=== PATIENT | male | born 1970 | race Caucasian/White ===

== ENCOUNTER 2017-01-26 11:13 | Day surgery (SDC) | payer OTHER ==
[~2017-01-26] VITALS: Ht 182.9 cm; Wt 98.1 kg
[2017-01-26 12:32] VITALS: Ht 182.9 cm; Wt 98.1 kg
[2017-01-26] MEDS ORDERED: LIDOCAINE 2% (SDV) 5 ML INJ ONE (13:56)
[2017-01-26] MEDS ORDERED: PROPOFOL 40 ML ONE (13:56)
[2017-01-26 14:03] VITALS: BP 146/88; PULSE 69; RESP 16
[2017-01-26 14:51] VITALS: BP 148/98; RESP 20
--- NOTE | 2017-01-26 15:14 | GILP ---
DATE OF PROCEDURE: 01/26/2017 NAME OF PROCEDURES: 1. Esophagogastroduodenoscopy and biopsy. 2. Colonoscopy and biopsy. SURGEON: Radha Santana MD PREOPERATIVE DIAGNOSES: 1. Abdominal pain. 2. Change in the bowel habit. 3. Family history of colon cancer. POSTOPERATIVE DIAGNOSES: 1. Gastritis with erosions. 2. Biopsy was positive for Helicobacter pylori test. 3. Colonoscopy all the way to the cecum. 4. Small cecal polyp was removed using the biopsy forceps. 5. Diverticulosis of the colon. 6. Internal hemorrhoids. INDICATION FOR THE PROCEDURE: Mr. Fady Recinos is a 46-year-old male patient who had upper and lowe r abdominal pain associated with change in the bowel habit. The patient also has a family history o f colon cancer. The patient was scheduled for endoscopy and colonoscopy for further evaluation. The procedures and possible complications were well explained to the patient, he understood and cons ented to the procedure. DESCRIPTION OF PROCEDURE: Under the influence of anesthesia, the gastroscope was carefully introduc ed into the esophagus and under direct vision, it was advanced to the stomach and through the pyloru s into the duodenal bulb and descending duodenum. FINDINGS: ESOPHAGUS: The mucosa was normal. STOMACH: The patient had gastritis with erosions. Gastric mucosal biopsies were positive for H. py nicolasa test. DUODENUM: Normal. The colonoscope was carefully introduced in the rectum and under direct vision, it was advanced all the way to the cecum. FINDINGS: The patient had a small cecal polyp and it was removed using the biopsy forceps. He was noted to have diverticulosis of the colon and internal hemorrhoids. He tolerated the procedures very well and there was no complication from the procedures. At the end of the procedures, he was awake with stable vital signs and he was discharged home to the care of [facility]. IMPRESSION: 1. Gastritis with erosions. 2. Gastric mucosal biopsies were positive for Helicobacter pylori infection. 3. Colonoscopy all the way to the cecum. 4. Small cecal polyp was removed using the biopsy forceps. 5. Diverticulosis of the colon. 6. Internal hemorrhoids. PLAN: 1. High fiber diet. 2. Zantac 300 mg p.o. b.i.d. for 14 days. 3. Doxycycline 100 mg p.o. b.i.d. for 14 days. 4. Flagyl 500 mg p.o. b.i.d. for 14 days. 5. Pepto-Bismol 2 tablets p.o. q.i.d. for 14 days. 6. Next screening colonoscopy in 5 years. Dictated By: RADHA SANTANA/ROHAN Conf#: [id number] DID#: [id number] CC: RADHA SANTANA MD;*EndCC*
== END 2017-01-26 15:02 | disposition home or self-care (01) ==
LOC: GIL 11:13
PROVIDERS: ATTEND Internal Medicine Gastroenterology
DX: R19.4 Change in bowel habit (principal); R10.13 Epigastric pain; D12.0 Benign neoplasm of cecum; K57.90 Diverticulosis of intestine, part unspecified, without perforation or abscess without bleeding; K64.8 Other hemorrhoids; E66.9 Obesity, unspecified; Z68.29 Body mass index [BMI] 29.0-29.9, adult
CPT/HCPCS: 43239; 45380; 87081; 88305; Z7610